=== PATIENT | male | born 1960 | race Caucasian/White ===

== ENCOUNTER 2016-07-31 18:09 | Emergency (ER) | payer OTHER ==
[~2016-07-31] VITALS: Ht 190.5 cm; Wt 84.5 kg
[2016-07-31] MEDS ORDERED: CLEOCIN300 MG PO (19:03)
[2016-07-31] MEDS ORDERED: ULTRAM50 MG PO (19:03)
[2016-07-31 19:42] VITALS: BP 149/114
== END 2016-07-31 19:43 | disposition home or self-care (01) ==
LOC: EME 18:09 → RME 18:09
DX: K02.9 Dental caries, unspecified (principal); K08.89 Other specified disorders of teeth and supporting structures; F17.200 Nicotine dependence, unspecified, uncomplicated
CPT/HCPCS: 99281; 99283